=== PATIENT | male | born 1960 | race Hispanic/Latino ===

== ENCOUNTER 2019-01-01 12:34 | Emergency (ER) | payer SELFPAY | END 2019-01-01 13:37 | disposition home or self-care (01) | LOC: EDH 12:34 | DX: K02.9 Dental caries, unspecified (principal); E11.9 Type 2 diabetes mellitus without complications; I10 Essential (primary) hypertension; I25.10 Atherosclerotic heart disease of native coronary artery without angina pectoris ==